=== PATIENT | male | born 1950 | race Caucasian/White ===

== ENCOUNTER → 2018-08-03 | Outpatient (CLI) | payer MEDICARE ==
--- NOTE | 2018-08-03 12:47 | CT ---
EXAMINATION TYPE: CT wrist LT wo con DATE OF EXAM: 08/03/2018 COMPARISON: None HISTORY: Left wrist pain post lifting injury. CT DLP: 63.5 mGycm Automated exposure control for dose reduction was used. FINDINGS: There are cystic changes and involving carpal bones with diffuse severe osteopenia. Arthropathy of th e first carpal metacarpal joint and radial carpal joint noted. Cystic changes involving the ulna also noted as well as the articular surface of the radius. Small amount soft tissue edema noted. IMPRESSION: 1. Diffuse osteopenia with post arthritic changes in numerous cystic changes seen throughout the visu alized osseous structures which may been the basis of cystic geode rather than cystic bone disease thomas ch as amyloidosis. 2. No definite acute fracture. 3. If there is concern for ligamentous or soft tissue injury correlate with MRI. 4. Soft tissue edema likely posttraumatic
== END | disposition home or self-care (01) ==
LOC: RADCTMAIN 12:03
PROVIDERS: ATTEND Orthopaedic Surgery
DX: M13.832 Other specified arthritis, left wrist (principal); M85.842 Other specified disorders of bone density and structure, left hand; R60.0 Localized edema

== ENCOUNTER 2023-07-29 05:46 | Inpatient (IN) | payer MEDICARE ==
[2023-07-29] MEDS ORDERED: CLOPIDOGREL 75 MG TAB PO PRN (06:03)
[2023-07-29] MEDS ORDERED: ALPRAZolam 0.25 MG TAB PO PRN (06:03)
[2023-07-29] MEDS ORDERED: NITROGLYCERIN SL TABS 0.4 MG TAB SUBLINGUAL PRN (06:03)
[2023-07-29] MEDS ORDERED: SODIUM CHLORIDE 0.9% 1,000 ML in EMPTY BAG 1 BAG IV ONE (06:03)
[2023-07-29] MEDS ORDERED: ASPIRIN 81 MG PO PRN (06:03)
[2023-07-29] MEDS ORDERED: ALPRAZolam 0.5 MG TAB PO PRN (06:03)
[2023-07-29 07:50] LABS: Glucose,Whole Blood 119 mg/dL (70-110)
[2023-07-29 07:51] LABS: Basophils # (A) 0.1 k/uL (0-0.2); Basophils % (A) 1 %; Eosinophils # (A) 0.5 k/uL (0-0.7); Eosinophils % (A) 4 %; HCT 43.7 % (39.0-53.0); HGB 14.9 gm/dL (13.0-17.5); Lymphocytes # (A) 2.7 k/uL (1.0-4.8); Lymphocytes % (A) 21 %; MCH 30.9 pg (25.0-35.0); MCHC 34.1 g/dL (31.0-37.0); MCV 90.6 fL (80.0-100.0); Mean Platelet Volume 7.7; Monocytes # (A) 0.9 k/uL (0-1.0); Monocytes % (A) 7 %; Neutrophils # (A) 8.7 k/uL (1.3-7.7); Neutrophils % (A) 67 %; Platelet Count 233 k/uL (150-450); RBC 4.83 m/uL (4.30-5.90); RDW 14.2 % (11.5-15.5)
[2023-07-29 08:05] LABS: African American GFR (CKD) 74 (>60 ml/min/1.73 sqM); Anion Gap 10 mmol/L; Blood Urea Nitrogen 28 mg/dL (9-20); Calcium 9.8 mg/dL (8.4-10.2); Carbon Dioxide 26 mmol/L (22-30); Chloride 105 mmol/L (98-107); Glucose 128 mg/dL (74-99); Non-African American GFR(CKD) 64 (>60 ml/min/1.73 sqM); Potassium 4.3 mmol/L (3.5-5.1); Sodium 141 mmol/L (137-145)
[2023-07-29 08:23] VITALS: RESP 18; TEMP 98.2
[2023-07-29] MEDS ORDERED: LIDOCAINE 1% INJ 10MG/ML (20 ML MDV) SQ ONE (08:34)
[2023-07-29] MEDS ORDERED: HEPARIN SODIUM 1,000 UN/ML (10ML VL) ONE (08:42)
[2023-07-29] MEDS ORDERED: IOPAMIDOL-370 100ML BTL INJ ONE (09:00)
[2023-07-29] MEDS ORDERED: MIDAZOLAM 2 MG/2 ML VIAL IVP ONE (09:05)
[2023-07-29] MEDS ORDERED: fentaNYL (PF) 50 MCG/ML 2 ML AMP IVP ONE (09:07)
[2023-07-29] MEDS ORDERED: fentaNYL (PF) 50 MCG/ML 2 ML AMP ONE (09:10)
[2023-07-29] MEDS ORDERED: NALOXONE 0.4 MG/ML 1 ML VIAL IVP PRN (09:19)
--- NOTE | 2023-07-29 09:28 | P.PCN ---
Date of Procedure: 07/29/23 Operative Findings: An aortic arch and carotid angiogram Performing physician Horacio Dykes MD Procedure performed An aortic arch angiogram Selective right common and right internal carotid angiogram Selective right common femoral artery angiogram Ultrasound-guided access of the right common femoral artery Indication Carotid atherosclerosis Approach Right common femoral artery Complication None Level of sedation The procedure was performed with no sedation with the procedure length of 38 minutes Jovi of procedure description after obtaining an informed consent the patient was brought to the cardiac geoscience laboratory technician. The right common femoral artery was cannulated using puncture technique under ultrasound guidance the micropuncture wire passed easily then I placed a 6-Micronesian sheath the right common femoral artery. After that I did an aortic arch angiogram using 5-Micronesian pigtail catheter under a digital subselection and using a poor injection. Subsequently I did selective the right common carotid artery using JB2 catheter with 035 stiff Glidewire. An angiogram was performed using the is a. The procedure was completed was no complication. Selective angiogram The aortic arch is a bovine arch The right carotid including the right common carotid artery appeared to be angiographically normal. The right external carotid artery appeared to be normal. The proximal portion of the right internal carotid artery has severe/critical lesion appeared to be in the range of 80%. 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
[2023-07-29] MEDS ORDERED: SODIUM CHLORIDE 0.9% 1,000 ML in EMPTY BAG 1 BAG IV SCH (09:30)
--- NOTE | 2023-07-29 11:44 | P.GSCN ---
History of Present Illness Consult date: 07/29/23 Reason for Consult: Evaluate for carotid endarterectomy Requesting physician: Horacio Dykes History of present illness: This is a pleasant 73-year-old male who follows with Dr. Dykes from cardiology with a history of coronary artery disease, hypertension, former smoker, and right internal carotid artery stenosis. Patient came in for carotid stenting with Dr. Dykes for asymptomatic right ICA stenosis. He underwent aortic arch angiogram with selective right common and right internal carotid angiogram, selective right common femoral artery angiogram with findings of severe disease involving the right internal carotid artery and a bovine arch. He recommended patient be seen by vascular surgeon for evaluation of carotid endarterectomy. Patient is being seen in the extended stay unit. He states he has a history of coronary artery disease, carotid disease, former smoker, and hypertension. He denies any focal deficits, no recent reported stroke. The carotid angiogram reports right internal carotid artery. Discuss with patient findings included Severe/critical lesion appeared to be in the range of 80%. Patient currently on low-dose aspirin and plan is to start Plavix on discharge today. He denies any shortness of breath, chest pain, abdominal pain, nausea, vomiting, no lower extremity pain. Review of Systems A 14 point review systems was completed all pertinent positives and negatives as stated in the HPI. Past Medical History Past Medical History: Coronary Artery Disease (CAD), Chest Pain / Angina, Diabetes Mellitus, Hyperlipidemia, Hypertension, Osteoarthritis (OA) Additional Past Medical History / Comment(s): dizziness, wt loss, resolved with med adjustment. blocked carotid arteries hossein. U/S and CT Scan. hx of kinked carotid artery, History of Any Multi-Drug Resistant Organisms: None Reported Past Surgical History: Heart Catheterization, Joint Replacement Additional Past Surgical History / Comment(s): Total rt hip replaced, heart cath not completed per pt Past Anesthesia/Blood Transfusion Reactions: No Reported Reaction Smoking Status: Former smoker, Heavy tobacco smoker - Past Family History Father Family Medical History: Myocardial Infarction (HI) Mother Additional Family Medical History / Comment(s): alcohol abuse- Medications and Allergies Home Medications Medication Instructions Recorded Confirmed Type Aspirin 81 mg PO HS 07/24/23 07/29/23 History Atorvastatin [Lipitor] 40 mg PO HS 07/24/23 07/29/23 History Glimepiride 1 mg PO HS 07/24/23 07/29/23 History Isosorbide Mononitrate ER [Imdur] 30 mg PO HS 07/24/23 07/29/23 History atenoloL [Atenolol] 50 mg PO HS 07/24/23 07/29/23 History hydroCHLOROthiazide 12.5 mg PO HS 07/24/23 07/29/23 History lisinopriL [Zestril] 10 mg PO HS 07/24/23 07/29/23 History metFORMIN HCL 1,000 mg PO HS 07/24/23 07/29/23 History Allergies Allergy/AdvReac Type Severity Reaction Status Date / Time No Known Allergies Allergy Verified 07/29/23 07:33 Surgical - Exam Vital Signs Temp Pulse Resp BP Pulse Ox 98.2 F 67 18 141/70 98 07/29/23 07:57 07/29/23 07:57 07/29/23 07:57 07/29/23 07:57 07/29/23 07:57 General appearance: The patient is alert, oriented, appears in no acute distress. HET: Head is normocephalic and atraumatic. Pupils are equal and reactive. Neck: Supple. Heart: Regular. Lungs: Equal expansion, normal respiratory effort. Abdomen: Soft, nontender, nondistended. Extremities: Normal skin color and turgor. Neurological: No focal deficits. Strength and sensation are grossly intact. Results - Labs 07/29/23 07:36 07/29/23 07:36 Abnormal Lab Results - Last 24 Hours (Table) 07/29/23 07/29/23 07/29/23 Range/Units 07:36 07:36 07:42 WBC 13.0 H (3.8-10.6) k/uL Neutrophils # 8.7 H (1.3-7.7) k/uL BUN 28 H (9-20) mg/dL Glucose 128 H (74-99) mg/dL POC Glucose (mg/dL) 119 H (70-110) mg/dL Diabetes panel 07/29/23 Range/Units 07:36 Sodium 141 (137-145) mmol/L Potassium 4.3 (3.5-5.1) mmol/L Chloride 105 (98-107) mmol/L Carbon Dioxide 26 (22-30) mmol/L BUN 28 H (9-20) mg/dL Creatinine 1.14 (0.66-1.25) mg/dL Glucose 128 H (74-99) mg/dL Calcium 9.8 (8.4-10.2) mg/dL Calcium panel 07/29/23 Range/Units 07:36 Calcium 9.8 (8.4-10.2) mg/dL Pituitary panel 07/29/23 Range/Units 07:36 Sodium 141 (137-145) mmol/L Potassium 4.3 (3.5-5.1) mmol/L Chloride 105 (98-107) mmol/L Carbon Dioxide 26 (22-30) mmol/L BUN 28 H (9-20) mg/dL Creatinine 1.14 (0.66-1.25) mg/dL Glucose 128 H (74-99) mg/dL Calcium 9.8 (8.4-10.2) mg/dL Adrenal panel 07/29/23 Range/Units 07:36 Sodium 141 (137-145) mmol/L Potassium 4.3 (3.5-5.1) mmol/L Chloride 105 (98-107) mmol/L Carbon Dioxide 26 (22-30) mmol/L BUN 28 H (9-20) mg/dL Creatinine 1.14 (0.66-1.25) mg/dL Glucose 128 H (74-99) mg/dL Calcium 9.8 (8.4-10.2) mg/dL Assessment and Plan Assessment: 1. Asymptomatic, hemodynamically severe right internal carotid artery stenosis 2. Coronary artery disease 3. Hypertension 4. Former smoker Plan: 1. Continue with recommendations from cardiology 2. Patient to follow-up with Dr. Lang next week to discuss carotid intervention for asymptomatic right ICA stenosis 3. Patient and at bedside, they were asked to bring and CT angiogram disc from outside facility to their appointment, they were agreeable to plan. They were given Dr. Lang's business card and will follow up next week. Thank you for this consultation. Patient is clear from vascular surgery for discharge. The impression and plan of care has been dictated as directed. Dr. Lang I performed a history and examination of this patient, discussed the same with the dictator. I agree with the dictator's note ,documented as a scribe. Any additional findings or plans will be noted.
[2023-07-29 16:54] VITALS: BP 128/61; PULSE 68
== END 2023-07-29 16:41 | disposition home or self-care (01) | DRG 68 ==
LOC: 2ORMAIN 05:46
PROVIDERS: ADMIT Internal Medicine Interventional Cardiology; ATTEND Internal Medicine Interventional Cardiology
PROC: B3101ZZ Fluoroscopy of Thoracic Aorta using Low Osmolar Contrast (ICD-10-PCS; 2023-07-29)
PROC: B3161ZZ Fluoroscopy of Right Internal Carotid Artery using Low Osmolar Contrast (ICD-10-PCS; principal; 2023-07-29 08:30)
PROC: B41F1ZZ Fluoroscopy of Right Lower Extremity Arteries using Low Osmolar Contrast (ICD-10-PCS; 2023-07-29 08:30)
DX: I65.21 Occlusion and stenosis of right carotid artery (principal); I10 Essential (primary) hypertension; E78.5 Hyperlipidemia, unspecified; M19.90 Unspecified osteoarthritis, unspecified site; I25.10 Atherosclerotic heart disease of native coronary artery without angina pectoris; Z96.641 Presence of right artificial hip joint; Z95.3 Presence of xenogenic heart valve; Z82.49 Family history of ischemic heart disease and other diseases of the circulatory system; Z87.891 Personal history of nicotine dependence; Z79.82 Long term (current) use of aspirin; Z79.84 Long term (current) use of oral hypoglycemic drugs; Z79.899 Other long term (current) drug therapy
CPT/HCPCS: 36216; 36223; 80048; 85025